=== PATIENT | female | born 1995 | race Caucasian/White ===

== ENCOUNTER 2020-10-31 15:04 | Emergency (ER) | payer BC ==
[2020-10-31] MEDS ORDERED: ACETAMINOPHEN 325 MG TABLET (FP) PO ONE (15:19)
[2020-10-31 15:26] VITALS: BP 129/86; PULSE 64; TEMP 97.8; BMI 25.8
[2020-10-31] MEDS ORDERED: ACETAMINOPHEN 325 MG TABLET (FP) ONE (15:38)
== END 2020-10-31 17:16 | disposition home or self-care (01) ==
LOC: FER 15:04
DX: S02.2XXA Fracture of nasal bones, initial encounter for closed fracture (principal)
CPT/HCPCS: 70486-TC; 99284-25